=== PATIENT | male | born 1950 | race Caucasian/White ===

== ENCOUNTER 2018-08-24 08:41 | Outpatient (CLI) | payer MEDICARE, OTHER ==
--- NOTE | 2018-08-25 08:02 | DEXA Report ---
Reason: OSTEOPOROSIS Procedure Date: 08/24/2018 Accession Number: [id number] / [id number] Procedure: DEX - Dexa Spine and/or Hip CPT Code: FULL RESULT: EXAM: Dexa Spine and/or Hip DATE: 08/24/2018 9:20 AM CLINICAL HISTORY: OSTEOPOROSIS TECHNIQUE: Dual energy x-ray absorptiometry (DXA) was performed on a [employer] System. Regions measured are the AP Spine, femoral neck, and if needed forearm. COMPARISON: None. In accordance with the International Society for Clinical Densitometry (ISCD) guidelines, data from previous exams may be reanalyzed using current recommendations and techniques. This is done to allow a more accurate basis for comparison with the current study. FINDINGS: The data for the lumbar spine is as follows: BMD (g/cm/cm) T-SCORE Z-SCORE REGION L1 1.011 -1.2 -0.4 L2 1.228 -0.1 0.7 L3 1.239 0.0 0.8 L4 1.437 1.6 2.5 TOTAL 1.216 0.0 0.8 NOTE: All evaluable vertebrae are used for classification The data for the hip is as follows: BMD (g/cm/cm) T-SCORE Z-SCORE REGION Neck 0.795 -2.1 -0.7 TOTAL 0.809 -2.0 -1.2 NOTE: The femoral neck or total proximal femur, whichever is lowest, is used for classification. The data for the left forearm is as follows: BMD (g/cm/cm) T-SCORE Z-SCORE REGION 1/3 0.942 -0.5 0.3 NOTE: The 33% radius of the nondominant forearm is used for classification. IMPRESSION: THE WHO CLASSIFICATION BASED ON THE INTERNATIONAL REFERENCE STANDARD IS OSTEOPENIA. THE FRACTURE RISK IS INCREASED. RECOMMENDATION: Patients with diagnosis of osteoporosis or osteopenia should have regular bone mineral density assessment. For those eligible for Medicare, routine testing is allowed once every 2 years. Testing frequency can be increased for patients who have rapidly progressing disease or for those who are receiving medical therapy to restore bone mass. COMMENT: World Health Organization (WHO) definitions for osteoporosis and osteopenia: NORMAL BMD: T-score at -1.0 or higher, fracture risk is low OSTEOPENIA BMD: T-score between -1.0 and -2.5, fracture risk is increased. OSTEOPOROSIS BMD: T-score at -2.5 or lower, fracture risk is high. National Osteoporosis Foundation recommends: 1. Obtain adequate dietary calcium (at least 1200 mg per day) and vitamin D (400-800 international units per day). 2. Participate, as appropriate, in regular weightbearing and muscle-strengthening exercise. 3. Avoid tobacco use and reduce alcohol and caffeine intake. 4. For more detailed information see the website at www.NOF.org.
== END 2018-08-24 08:42 | disposition home or self-care (01) ==
LOC: DI 08:41
PROVIDERS: ATTEND Family Medicine Sports Medicine
DX: M85.88 Other specified disorders of bone density and structure, other site (principal)
CPT/HCPCS: 77080

== ENCOUNTER 2022-12-25 16:57 | Outpatient (CLI) | payer MEDICARE, OTHER | END 2022-12-25 23:59 | disposition critical access hospital (66) | LOC: EMS 16:57 | DX: R55 Syncope and collapse (principal) | CPT/HCPCS: A0425; A0429 ==

== ENCOUNTER 2022-12-25 17:26 | Emergency (ER) | payer MEDICARE, OTHER ==
--- NOTE | 2022-12-25 17:33 | ED Physician Documentation ---
PD HPI SYNCOPE - Stated complaint Stated Complaint: SYNCOPAL EPISODE - History obtained from History obtained from: Patient, Family, EMS - Additional information Additional information: 72-year-old gentleman with history of hypertension and hyperlipidemia took a hike today. Then was at an event where he had 1 beer. Stood up and felt dizzy and passed out. He was unconscious for under a minute and then stood up again and said he was fine and passed out briefly again. No seizure activity. No postictal period. No chest pain. No shortness of breath. Feeling fine now. Independent history from both his and EMS. 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 Relevant findings are: Rate: Rate (enter#) (61) Rhythm: NSR [place]: Normal Intervals: Normal MS QRS: Normal Ischemia: Normal ST segments - Labs Labs: Laboratory Tests 12/25/22 12/25/22 12/25/22 17:42 17:42 17:42 WBC 5.4 RBC 4.33 L Hgb 13.8 L Hct 41.4 L MCV 95.6 H MCH 31.9 H MCHC 33.3 RDW 12.8 Plt Count 286 MPV 8.9 Neut # (Auto) 3.2 Lymph # (Auto) 1.5 [place] # (Auto) 0.6 Eos # (Auto) 0.0 Baso # (Auto) 0.0 Absolute Nucleated RBC 0.00 Nucleated RBC % 0.0 Sodium 136 Potassium 3.9 Chloride 99 L Carbon Dioxide 28 Anion Gap 9.0 BUN 16 Creatinine 1.1 Estimated GFR (MDRD) 66 L Glucose 126 H Calcium 8.9 Troponin I High Sens < 2.3 L PD Medical Decision Making - ED course Complexity details: reviewed results (CBC showing mild macrocytic anemia. No prior values available for comparison. CMP showing glucose at 126, otherwise unremarkable.) ED course: 72-year-old gentleman went on a hike today and did not drink much water. He has a prostate issue and does not like to have to go frequently. Then he went to an event and drank a single beer and then had premonition of syncope. His work-up here in the department is negative with the exception of mild macrocytic anemia and he was feeling better after IV fluids. Departure - Departure Disposition: 01 Home, Self Care Clinical Impression: Syncope, Macrocytic anemia Condition: Good Record reviewed to determine appropriate education?: Yes Instructions: ED Fainting Unkn Cause Comments: As discussed, you do have mild "macrocytic" anemia. Your hemoglobin was 13.8, hematocrit 41.4 and MCV 95.6. Please mention this to your primary care physician. Otherwise your work-up was normal/negative. Follow-up with urologist as you are planning and drink plenty of fluids. Call your doctor to arrange a follow-up appointment, make the next available appointment. In the interim, return anytime if worse or if new symptoms develop.
[2022-12-25 17:48] LABS: BASOPHILS % (AUTO) 0.6 %; EOSINOPHILS % (AUTO) 0.4 %; HCT - HEMATOCRIT 41.4 % (42.0-52.0); HGB - HEMOGLOBIN 13.8 g/dL (14.0-18.0); LYMPHOCYTES # (AUTO) 1.5 10^3/uL (1.5-3.5); MEAN CORPUSCULAR HEMOGLOBIN 31.9 pg (27.0-31.0); MEAN CORPUSCULAR HGB CONC 33.3 g/dL (32.0-36.0); MEAN CORPUSCULAR VOLUME 95.6 fL (80.0-94.0); MEAN PLATELET VOLUME 8.9 fL (7.4-11.4); MONOCYTES # (AUTO) 0.6 10^3/uL (0.0-1.0); MONOCYTES % (AUTO) 11.7 %; NEUTROPHILS # (AUTO) 3.2 10^3/uL (1.5-6.6); NEUTROPHILS % (AUTO) 59.9 %; PLT - PLATELET COUNT 286 10^3/uL (130-450); RED BLOOD COUNT 4.33 10^6/uL (4.70-6.10); RED CELL DISTRIBUTION WIDTH 12.8 % (12.0-15.0); WHITE BLOOD COUNT 5.4 x10^3/uL (4.8-10.8)
[2022-12-25 17:57] LABS: CALCIUM 8.9 mg/dL (8.5-10.3); CREATININE 1.1 mg/dL (0.6-1.2); POTASSIUM 3.9 mmol/L (3.5-5.0)
[2022-12-25] MEDS ORDERED: SODIUM CHLORIDE 0.9% 1,000 ML IV STA (18:12)
[2022-12-25 18:58] VITALS: BP 150/93
== END 2022-12-25 19:11 | disposition home or self-care (01) ==
LOC: EDUNIT# → ED 17:26
DX: D53.9 Nutritional anemia, unspecified (principal); R55 Syncope and collapse; I10 Essential (primary) hypertension
CPT/HCPCS: 36415; 80048; 84484; 85025; 93005; 99283; 99284

== ENCOUNTER 2023-08-11 14:14 | Emergency (ER) | payer MEDICARE, OTHER ==
[2023-08-11 14:33] VITALS: O2SAT 98
--- NOTE | 2023-08-11 15:13 | ED Physician Documentation ---
History of Present Illness - Stated complaint Stated Complaint: - Chief complaint Chief Complaint: General - History obtained from History obtained from: Patient - Additonal information Additional information: The patient comes to the emergency department chief complaint of urinary retention. He had a TURP [address] Pineda at [facility]. He states he goes to [facility] because that is where his primary doctor referred him to go. The patient used to live in the [place] and has kept his physicians in [place]. He states that there was no particular complication or other concern that caused him to be sent to . The patient denies any fevers or chills. He states that his urination had actually been going along fairly good since the surgery but that after urinating a couple of times this morning, he noticed the urination suddenly stopped and he just had bloody urine dripping from his penis. He denies any increase in pain. He states that he did not have any trauma since the surgery. The patient states that he had had bloody urine all along, but that this was gradually improving. No other complaints at this time. He states he just has a very strong urge to urinate. PD PAST MEDICAL HISTORY - Past Medical History Cardiovascular: Hypertension, High cholesterol - Past Surgical History Past Surgical History: No - Allergies Allergies/Adverse Reactions: Allergies Allergy/AdvReac Type Severity Reaction Status Date / Time No Known Drug Allergies Allergy Verified 08/11/23 14:25 - Social History Does the pt smoke?: No Smoking Status: Never smoker Does the pt drink ETOH?: Yes Does the pt have substance abuse?: No - POLST Patient has POLST: No PD ED PE NORMAL - Vitals Vital signs reviewed: Yes - General General: Alert and oriented X 3, No acute distress, Well developed/nourished - HEENT HEENT: Atraumatic, PERRL, EOMI, Moist mucous membranes - Neck Neck: Supple, no meningeal sign - Cardiac Cardiac: RRR, No murmur - Respiratory Respiratory: No respiratory distress, Clear bilaterally - Abdomen Abdomen: Soft, Non tender, Non distended - Derm Derm: Normal color, Warm and dry, No rash - Extremities Extremities: No deformity, No edema - Neuro Neuro: Alert and oriented X 3, Other (Grossly intact) - Psych Psych: Normal mood, Normal affect Results - Vitals Vitals: Vital Signs - 24 hr 08/11/23 08/11/2324 14:20 14:46 16:18 Temperature 36.3 C L Heart Rate 77 75 Respiratory 17 18 15 Rate Blood Pressure 177/89 H 165/72 H O2 Saturation 98 98 Oxygen O2 Source Room air - Labs Labs: Laboratory Tests 08/11/23 15:00 Urine Color RED/BLOODY Urine Clarity TURBID Urine pH 7.0 Ur Specific [place] 1.020 Urine Protein >=300 H Urine Glucose (UA) NEGATIVE Urine Ketones NEGATIVE Urine Occult Blood LARGE H Urine Nitrite NEGATIVE Urine Bilirubin NEGATIVE Urine Urobilinogen 0.2 (NORMAL) Ur Leukocyte Esterase NEGATIVE Urine RBC TNTC H Urine WBC 0-3 Ur Squamous Epith Cells NONE SEEN Urine Bacteria None Seen Ur Microscopic Review INDICATED Urine Culture Comments NOT INDICATED PD Medical Decision Making - ED course Complexity details: reviewed results, re-evaluated patient, considered differential, d/w patient ED course: Patient had bladder scan done which showed what appeared to be about 1000 cc of urine in his bladder. A Nagel catheter was placed and passed easily and patient had output of Frank[place] bloody urine. The patient felt that this was not far off of his urine quality recently. No clots were noted to pass. Urinalysis was obtained, And showed blood but no evidence of infection. The patient was stable for discharge. We have discussed the need for close follow-up with his urologist, as well as usual indications for return. Departure - Departure Disposition: 01 Home, Self Care Clinical Impression: Urinary retention Condition: Stable Instructions: ED Catheter Care Nagel, ED Retention Urinary Male Comments: Your urinalysis shows blood only and no evidence of infection. It is not uncommon to have urinary retention after a prostate surgery such as the TURP you have had. Please follow closely with Dr. Pineda as scheduled. If the blood in your urine continues to be heavy and you begin to feel lightheaded or short of breath, please seek follow-up immediately. Otherwise, please plan to keep the catheter in until you see Dr. Pineda in the office next week. Forms: PCP List Discharge Date/Time: 08/11/23 16:20
[2023-08-11 15:14] LABS: BILIRUBIN,URINE NEGATIVE (NEGATIVE); GLUCOSE, URINE (UA) NEGATIVE (NEGATIVE); KETONES,URINE (UA) NEGATIVE (NEGATIVE); LEUKOCYTE ESTERASE, URINE NEGATIVE (NEGATIVE); NITRITE,URINE NEGATIVE (NEGATIVE); OCCULT BLOOD,URINE LARGE (NEGATIVE); PROTEIN,URINE >=300 mg/dL (NEGATIVE); UROBILINOGEN,URINE 0.2 (NORMAL) E.U./dL (NORMAL)
[2023-08-11 15:16] LABS: BACTERIA,URINE None Seen /HPF (None Seen); CLARITY,URINE TURBID (CLEAR); RBC,URINE TNTC /HPF (0-5); SQUAMOUS EPITHELIAL CELL,UR NONE SEEN (<= Few); WBC,URINE 0-3 /HPF (0-3)
[2023-08-11 16:20] VITALS: BP 165/72
== END 2023-08-11 16:20 | disposition home or self-care (01) ==
LOC: ED 14:14
DX: R33.9 Retention of urine, unspecified (principal); I10 Essential (primary) hypertension
CPT/HCPCS: 51702; 81001; 81003; 87086; 99283; 99284